=== PATIENT | male | born 1975 | race Caucasian/White ===

== ENCOUNTER 2022-06-08 16:25 | Emergency (ER) | payer OTHER, BC, SELFPAY ==
[2022-06-08 16:37] VITALS: BP 166/91; PULSE 98; RESP 16; TEMP 36.9; O2SAT 100
--- NOTE | 2022-06-08 16:58 | ED.WOUNDLAC ---
HPI - Wound/Laceration General Chief Complaint: Wound/Laceration Stated Complaint: L THUMB LACERATION Time Seen by Provider: 06/08/22 16:50 Source: patient, RN notes reviewed and old records reviewed Mode of arrival: ambulatory Limitations: no limitations History of Present Illness HPI narrative: 47 [facility] of laceration to his left hand sanchez aspect just below his thumb which occurred prior to arrival today when he accidentally cut it with utility knife at work. Patient reports that his tetanus is up to date from about 5 months ago when he had laceration to his finger. Patient denies any acute pain to his hand, no tingling or numbness to hand or thumb with full mobility of his thumb. Had been on blood thinner previous for PE and DVT but is not taking due to cost. Onset (ago): hour(s) (prior to arrival) Location: other (left hand sanchez aspect below thumb region) Place: work Patient tetanus UTD: Yes Treatments prior to arrival: bandage Related Data Home Medications Medication Instructions Recorded Confirmed No Home Medications 06/08/22 06/08/22 Allergies Allergy/AdvReac Type Severity Reaction Status Date / Time No Known Allergies Allergy Unknown Verified 04/12/15 01:29 Review of Systems Review of Systems: CONSTITUTIONAL: Denies fever, chills, or sweats. EYES: Denies visual changes, redness, or discharge. ENT: Denies rhinorrhea, congestion, sore throat, or otalgia. CARDIOVASCULAR: Denies chest pain, palpitations, edema noted to left lower leg previously diagnosed with DVT and PE was on blood thinner for a while but quit taking can't afford RESPIRATORY: Denies cough or dyspnea. GASTROINTESTINAL: Denies abdominal pain, nausea, vomiting, or diarrhea. GENITOURINARY: Denies dysuria or hematuria. SKIN: Denies rash or itching.2cm laceration to sanchez aspect of left hand below thumb region MUSCULOSKELETAL: Denies back pain, joint pain, or myalgia. NEUROLOGIC: Denies headache, numbness, or weakness. PSYCHIATRIC: Denies anxiety or depression. All systems reviewed & are unremarkable except as noted in HPI and below PMFSH Past Medical History Medical History (Updated 06/10/22 @ 12:33 by Reba Leyva NP) DVT (deep venous thrombosis) Gastroenteritis Pancreatitis Pulmonary emboli Social History Social History (Updated 06/10/22 @ 12:34 by Reba Leyva NP) Smoking packs per day: 0.75 Smoking cigarettes per day: 15.0 Years smoked: 30 Smoking pack-years: 22.50 Smoking status: Current every day smoker Tobacco type: cigarettes Alcohol intake: current Alcohol use details: rare social now Substance use type: does not use Gender identity (if verbalized by the patient): Male Comments At time of signature, agree with nursing past medical, surgical, social and family history. There is no relevant family history pertinent to the presenting complaint Exam Narrative: GENERAL: Well-appearing, well-nourished, and in no acute distress. HEAD: Normocephalic, atraumatic. EYES: PERRLA and EOMI. ENT: Nares clear, no rhinorrhea or epistaxis. Mucous membranes moist.TM's normal with good light reflex, throat pink with no lesions or swelling NECK: Supple.no lymphadenopathy CHEST: Clear to auscultation. No respiratory distress. SAO2 100% on room air denies dyspnea HEART: Regular rate and rhythm. No murmur heard. Normal peripheral pulses. ABDOMEN: Soft, nontender, nondistended, normal active bowel sounds. EXTREMITIES: Normal range of motion. edema left lower leg noted SKIN: Warm, dry, no rash. 2cm laceration to the left sanchez aspect of left hand below thumb with adequate circulation sensation and mobility to left hand and fingers. NEURO: No focal deficits. Alert and oriented x3. Course Course Level of Care: Express Care Visit Vital Signs Vital signs: Vital Signs Temperature 36.9 C 06/08/22 16:37 Pulse Rate 98 06/08/22 16:37 Respiratory Rate 16 06/08/
== END 2022-06-08 17:40 | disposition home or self-care (01) ==
PROVIDERS: Emergency Provider Registered Nurse; PCP Internal Medicine
DX: S61.412A Laceration without foreign body of left hand, initial encounter (principal); W26.0XXA Contact with knife, initial encounter; Y99.0 Civilian activity done for income or pay; F17.210 Nicotine dependence, cigarettes, uncomplicated; Z86.718 Personal history of other venous thrombosis and embolism; Z86.711 Personal history of pulmonary embolism
CPT/HCPCS: 12002; 99213; G0463